=== PATIENT | female | born 2005 | race Two or more races ===

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

== ENCOUNTER 2025-05-03 18:15 | Emergency (ER) | payer MEDICAID ==
[~2025-05-03] VITALS: Ht 162.6 cm; Wt 62.7 kg
[~2025-05-03 18:15] MED LIST: HYDR-3682 PO; NITR-87 PO
--- NOTE | 2025-05-03 19:18 | ED.PDOC ---
HPI (NEURO) HPI Comments Year old female who presents to the ED chief complaint headache. She states headache started proximally 3 days ago has been taking [id number] Tylenol with little relief she notes no aura states that headache is generalized. Denies nausea, vomiting, blurred vision, numbness, weakness, fever, chills, or known trauma. Chief Complaint: Headache Time Seen by MD: 18:32 Primary Care Provider: NONE Reviewed Notes: Nurses Notes, Medications, Allergies Information Source: Patient Mode of Arrival: Ambulatory Family History Family History: Unknown Constitutional: denies: chills, diaphoresis, fatigue, fever, malaise, sweats, weakness, others EENTM: denies: blurred vision, double vision, ear bleeding, ear discharge, ear drainage, ear pain, ear ringing, eye pain, eye redness, hearing loss, mouth pain, mouth swelling, nasal discharge, nose bleeding, nose congestion, nose pain, photophobia, tearing, throat pain, throat swelling, voice changes, others Respiratory: denies: cough, hemoptysis, orthopnea, SOB at rest, shortness of breath, SOB with excertion, stridor, wheezing, others Cardiovascular: denies: chest pain, dizzy spells, diaphoresis, Dyspnea on exertion, edema, irregular heart beat, left arm pain, lightheadedness, palpitations, PND, syncope, others Gastrointestinal: denies: abdomen distended, abdominal pain, blood streaked bowels, constipated, diarrhea, dysphagia, difficulty swallowing, hematemesis, melena, nausea, poor appetite, poor fluid intake, rectal bleeding, rectal pain, vomiting, others Genitourinary: denies: abnormal vagina bleeding, burning, dyspareunia, dysuria, flank pain, frequency, hematuria, incontinence, pain, , vagina discharge, urgency, others Neurological: reports: headache; denies: dizziness, fainting, left sided numbness, left sided weakness, numbness, paresthesia, pre-existing deficit, right sided numbness, right sided weakness, seizure, speech problems, tingling, tremors, weakness, others Musculoskeletal: denies: back pain, gout, joint pain, joint swelling, muscle pain, muscle stiffness, neck pain, others Integumetry: denies: bruises, change in color, change in hair/nails, dryness, laceration, lesions, lumps, rash, wounds, others Allergic/Immunocompromised: denies: Difficulty Healing, Frequent Infections, Hives, Itching, others Hematologic/Lymphatic: denies: anemia, blood clots, easy bleeding, easy bruising, swollen glands, others Endocrine: denies: excessive hunger, excessive sweating, excessive thirst, excessive urination, flushing, intolerance to cold, intolerance to heat, unexplained weight gain, unexplained weight loss, others Psychiatric: denies: anxiety, bipolar disorder, depression, hopeless, panic disorder, schizophrenia, sleepless, suicidal, others Physical Exam General Appearance: No Apparent Distress, Normal HEENT: Normal ENT Inspection, Pharynx Normal, TMs Normal Neck: Full Range of Motion, Non-Tender Respiratory: Lungs Clear, No Respiratory Distress, Normal Breath Sounds Cardiovascular: No Edema, No JVD, No Murmur, No Gallop, Normal Peripheral Pulses, Regular Rate/Rhythm Breast Exam: Deferred Gastrointestinal: No Organomegaly, Non Tender, No Pulsatile Mass, Normal Bowel Sounds, Soft Genitalia: Deferred Pelvic: Deferred Rectal: Deferred Extremities: Normal capillary refill, Normal inspection, Normal range of motion, Non-tender, No pedal edema Musculoskeletal : Apperance: Normal Neurologic: Alert, 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 Was a procedure done?: No Differential Diagnosis (SZ) Headache: Cluster, Migraine, Post-Traumatic, Sinusitis X-Ray, Labs, Meds, VS Vital Signs Date Time Temp Pulse Resp B/P (MAP) Pulse Ox O2 Delivery O2 Flow Rate FiO2 05/03/25 22:30 97.9 72 18 135/75 (95) 99 97.9 05/03/25 19:07 98.4 104 16 126/77 (93) 99 98.4 X-Ray, Labs, Meds, VS Comment DELAY IN PATIENT RECEIVING MEDICATIONS STATED SHE WOULD LIKE TO WAIT. Time of 1ST Reevaluation: 18:35 Reevaluation 1ST: Unchanged Time of 2ND Reevaluation: 00:16 Reevaluation 2ND: Improved Patient Education/Counseling: Diagnosis, Treatment, Prognosis, Need For Follow Up Family Education/Counseling: Diagnosis, Treatment, Prognosis, Need For Follow Up Departure 1 Departure Time of Disposition: 00:00 Impression: Primary Impression: Tension headache Disposition: HOME / SELF CARE / HOMELESS Condition: Stable e-Prescriptions Naproxen Sodium (Naproxen Sodium) 500 Mg Tab 500 MG PO BID PRN for 5 Days, #10 TAB Prov: THERESE CAAL 05/04/25 Discharged With: Self Critical Care Note Critical Care Time?: No Stability Stability form required: No THERESE CAAL May 03, 2025 19:18
[2025-05-03] MEDS ORDERED: DexAMETHasone SOD PHOS 10MG/1ML VIAL INJ IM ONE (19:30)
[2025-05-03] MEDS ORDERED: KETOROLAC TROMETH 60MG/2ML VIAL IM ONE (19:30)
[2025-05-03 22:30] VITALS: BP 135/75; PULSE 72; RESP 18; TEMP 97.9; O2SAT 99
[2025-05-04] MEDS ORDERED: NAPR1TAB87 PO (00:03)
== END 2025-05-03 23:16 | disposition home or self-care (01) ==
LOC: ER 18:15
DX: G44.209 Tension-type headache, unspecified, not intractable (principal)